=== PATIENT | female | born 1945 | race Caucasian/White ===

== ENCOUNTER → 2016-10-14 | Outpatient (REF) | payer MEDICARE, BC | LOC: M LAB REF 16:44 | PROVIDERS: ATTEND Internal Medicine | DX: I48.91 Unspecified atrial fibrillation (principal) ==

== ENCOUNTER → 2016-10-28 | Outpatient (REF) | payer MEDICARE, BC | LOC: M LAB REF 16:21 | PROVIDERS: ATTEND Internal Medicine | DX: I50.9 Heart failure, unspecified (principal); I48.91 Unspecified atrial fibrillation ==

== ENCOUNTER → 2016-11-19 | Outpatient (REF) | payer MEDICARE, BC | LOC: M LAB REF 16:28 | PROVIDERS: ATTEND Internal Medicine | DX: I48.91 Unspecified atrial fibrillation (principal) ==

== ENCOUNTER → 2016-12-25 | Outpatient (REF) | payer MEDICARE, BC ==
[~2016-12-25] MED LIST: CALCTAB44 PO; FURO40TA2 PO; LANO0.1211 PO; METO1TAB33 PO; SIMV20TA2 PO; SYNT137T7 PO; XARE20TA PO
== END ==
LOC: M LAB REF 16:47
PROVIDERS: ATTEND Internal Medicine
DX: I48.91 Unspecified atrial fibrillation (principal)

== ENCOUNTER 2017-03-10 06:51 | Outpatient (CLI) | payer MEDICARE, BC ==
[2017-03-10] MEDS ORDERED: XARE20TA PO (07:17)
[2017-03-10] MEDS ORDERED: METO1TAB33 PO (07:17)
[2017-03-10] MEDS ORDERED: CALCTAB44 PO (07:17)
[2017-03-10] MEDS ORDERED: LANO0.1211 PO (07:17)
[2017-03-10] MEDS ORDERED: SYNT137T7 PO (07:17)
[2017-03-10] MEDS ORDERED: SIMV20TA2 PO (07:17)
[2017-03-10] MEDS ORDERED: FURO40TA2 PO (07:17)
[2017-03-10] MEDS ORDERED: fentaNYL 100 MCG/2 ML INJECTION (J3010) As Ordered ONE (07:30)
[2017-03-10] MEDS ORDERED: MIDAZOLAM INJ 2 MG/2 ML VIAL (J2250) As Ordered ONE ×2 (07:30→07:44)
[2017-03-10] MEDS ORDERED: LIDOCAINE VISCOUS 2% SOLN 15ML UDC As Ordered ONE (07:31)
[2017-03-10 09:02] VITALS: BP 141/71
--- NOTE | 2017-03-10 22:16 | T-ECHO ---
DATE OF PROCEDURE: 03/10/2017 PRINCIPAL DIAGNOSIS: Mitral stenosis. BRIEF HISTORY: Mrs. Corbin is a rather delightful 71-year-old female who has chronic atrial fibrillation and known mitral stenosis that was felt to be at least moderately severe by transthoracic echocardiogram. Because she is increasingly symptomatic, she was brought for a transesophageal echocardiogram to assess the structure of mitral valve to see whether she could be a candidate for balloon valvuloplasty. The nature of the procedure, its potential risks and complications were discussed with the patient on an outpatient basis. She signed appropriate consent. She was brought to the hospital in fasting condition. PROCEDURE NOTE: Procedure was performed in endoscopy suite. The patient's posterior pharynx was anesthetized using viscous lidocaine and Cetacaine [place]. Appropriate time-out was obtained. The patient was sedated using a total of 4 mg of IV Versed and 50 mcg of IV fentanyl. She was positioned on the left side for the procedure. Probe was introduced into esophagus and later stomach with minor difficulty. After appropriate images were obtained, it was withdrawn. There were no immediate complications, and the patient tolerated the procedure well. Of note, during the procedure, she was intermittently bradycardic with typical heart rate around 50 beats per minute and occasionally dropping into high 30s. This has improved after she recovered from sedation. There were no episodes of hypotension during the study, and there was no significant hypoxemia. FINDINGS: Both atria are severely enlarged. Left atrium appendage is large as well. There is no apparent thrombus seen. There is apparent "smoke" in left atrium indicative of low flow state. Flow in left-sided pulmonary veins is normal. Right atrium is also markedly increased in size. Atrial septum is intact based on two-dimensional imaging, color Doppler imaging. After injection of agitated saline, there was no evidence for [id number] or ejlf-lq-brcln shunt. Left ventricle is of normal size and overall normal systolic function. I estimate left ventricular ejection fraction (LVEF) around 60%. No segmental wall motion abnormalities are appreciated. Right ventricle also appears normal and has normal systolic function. Aortic valve is tricuspid. It is mildly sclerotic but has preserved mobility. Based on color Doppler imaging, there is no aortic stenosis and trace aortic insufficiency. Tricuspid valve appears normal. There is approximately moderate tricuspid insufficiency. Tricuspid regurgitation peak gradient was measured a 31 mmHg. That would translate into mild pulmonary hypertension. Pulmonic valve is functionally competent. Mitral valve in is indeed stenotic. There is some thickening of mitral leaflet and restriction of leaflet mobility. Minimal calcifications are seen. The peak gradient across the mitral valve was 16 mmHg and mean gradient 6 mmHg, that would correspond to approximately moderate mitral stenosis. There was only mild mitral insufficiency. Only minimal atherosclerosis was seen in thoracic aorta. CONCLUSIONS: 1. Normal left ventricular (LV) systolic function. 2. Approximately moderate mitral stenosis, mild mitral insufficiency, no significant calcifications in the mitral valve apparatus. 3. No significant aortic valve disease. 4. Moderate tricuspid insufficiency. 5. At least mild pulmonary hypertension. 6. Intact atrial septum. 7. Low flow state seen in left atrium based on presence of "smoke." COMMENTS: Subacute bacterial endocarditis (SBE) prophylaxis is not recommended. The severity of mitral stenosis does not appear sufficient to be fully explaining the patient's symptoms. Probably in part due to significant bradycardia during the study. I will see the patient in followup within 1 or 2 weeks and will likely set up cardiac catheterization for further evaluation of her symptoms. LANE
== END 2017-03-10 09:02 | disposition home or self-care (01) ==
LOC: M OPP 06:51
PROVIDERS: ATTEND Internal Medicine Cardiovascular Disease
DX: I34.2 Nonrheumatic mitral (valve) stenosis (principal); I48.2 Chronic atrial fibrillation; I27.0 Primary pulmonary hypertension; I36.1 Nonrheumatic tricuspid (valve) insufficiency; I10 Essential (primary) hypertension; R06.09 Other forms of dyspnea; Z88.2 Allergy status to sulfonamides; Z88.5 Allergy status to narcotic agent; Z88.8 Allergy status to other drugs, medicaments and biological substances; Z80.9 Family history of malignant neoplasm, unspecified; Z79.899 Other long term (current) drug therapy
CPT/HCPCS: 93312; 93320; 93325; J2250; J3010

== ENCOUNTER → 2017-03-21 | Outpatient (CLI) | payer MEDICARE, BC ==
[2017-03-21 17:02] LABS: ANION GAP 8 MEQ/L (8-16); BLOOD UREA NITROGEN 11 MG/DL (7-18); CALCIUM LEVEL 8.9 MG/DL (8.8-10.2); CARBON DIOXIDE LEVEL 27 MEQ/L (21-32); CHLORIDE LEVEL 102 MEQ/L (98-107); CREATININE FOR GFR 0.72 MG/DL (0.55-1.02); GLOMERULAR FILTRATION RATE > 60.0 (>45); GLUCOSE, FASTING 95 MG/DL (80-110); POTASSIUM SERUM 3.9 MEQ/L (3.5-5.1); SODIUM LEVEL 137 MEQ/L (136-145)
[2017-03-21 17:13] LABS: BASO # 0.1 10^3/uL (0.0-0.2); EOS # 0.1 10^3/uL (0.0-0.50); EOS % 1.8 % (0.0-3.0); IMMATURE GRANULOCYTE % 0.3 % (0-0); LYMPH # 1.7 10^3/uL (1.5-4.5); LYMPH % 23.6 % (24.0-44.0); MEAN CORPUSCULAR HEMOGLOBIN 28.4 pg (27.0-33.0); MEAN CORPUSCULAR HGB CONC 33.1 g/dl (32.0-36.5); MEAN CORPUSCULAR VOLUME 85.7 fl (80.0-96.0); MONO # 0.5 10^3/uL (0.0-0.8); NEUTROPHILS # 4.8 10^3/uL (1.8-7.7); NEUTROPHILS % 66.3 % (36.0-66.0); PLATELET COUNT, AUTOMATED 406 10^3/uL (150-450); RED CELL DISTRIBUTION WIDTH 13.7 % (11.5-14.5); WHITE BLOOD COUNT 7.3 10^3/uL (4.0-10.0)
[2017-03-21 17:18] LABS: ADD MORPHOLOGY? NO
== END ==
LOC: M WUC 14:21
PROVIDERS: ATTEND Internal Medicine Cardiovascular Disease
DX: I05.0 Rheumatic mitral stenosis (principal); I10 Essential (primary) hypertension

== ENCOUNTER → 2017-07-08 | Outpatient (REF) | payer MEDICARE, BC ==
[2017-07-08 17:58] LABS: DIGOXIN LEVEL 0.3 NG/ML (0.5-2.0)
== END ==
LOC: M LAB REF 16:41
DX: I48.91 Unspecified atrial fibrillation (principal)
CPT/HCPCS: 80162

== ENCOUNTER → 2018-11-10 | Outpatient (CLI) | payer MEDICARE, BC ==
[~2018-11-10] MED LIST changes: +CALC1TAB82 PO; -CALCTAB44 PO; +LANO0.12 PO; -LANO0.1211 PO
--- NOTE | 2018-11-10 15:08 | REP ---
REASON: Foot bone pain. No trauma. No priors. Degenerative change is seen throughout the foot. The bones are somewhat demineralized. Plantar and a large retrocalcaneal heel spur. No evidence of an acute fracture. IMPRESSION: Chronic changes as described above. Electronically Signed by Jerson Wood DO 11/10/2018 03:16 P
== END ==
LOC: M WUC 14:45
PROVIDERS: ATTEND Physician Assistant
DX: M77.32 Calcaneal spur, left foot (principal)

== ENCOUNTER → 2018-11-23 | Outpatient (CLI) | payer MEDICARE, BC ==
--- NOTE | 2018-11-23 15:18 | REPMRS ---
Patient History The patient states she has not had a clinical breast exam in over a year. Patient is postmenopausal. No known family history of cancer. No Hormone Replacement Therapy 3D TOMOSYNTHESIS WAS PERFORMED. Digital Woman Screen Mammo: November 23, 2018 - Exam #: [id number] Bilateral CC and MLO view(s) were taken. Technologist: Hortencia Arguello, Technologist Prior study comparison: May 20, 2016, digital woman screen mammo performed at [facility] [place] [facility]. November 11, 2012, digital woman screen mammo performed at [facility] [place] [facility]. FINDINGS: There are scattered fibroglandular densities. There has been no change in the appearance of the mammogram from the prior studies. There is a mild amount of residual fibroglandular tissue which is fairly symmetric. There is no interval development of dominant mass, architectural distortion, or clustered microcalcification suggestive of malignancy. Assessment: BI-RADS/ACR category 1 mammogram. Negative Mammogram. Recommendation Routine screening mammogram in 1 year (for women over age 40). This mammogram was interpreted with the aid of an FDA-approved computer-aided dectection system. Electronically Signed By: Adria Clarke MD 11/23/18 0601
--- NOTE | 2018-11-27 11:07 | DEXA ---
AP SPINE L1 - L4 0.902 -2.4 -0.7 LT FEMUR TOTAL 0.787 -1.8 -0.2 LT NECK 0.699 -2.4 -0.7 RT FEMUR TOTAL 0.817 -1.5 0.0 RT NECK 0.745 -2.1 -0.4 TOTAL BODY TOTAL OTHER COMMENTS: There is low bone density of the spine and hips. The decreased density of the spine does represent a significant change. The decreased density of the left hip does represent a significant change. The decreased density of the right hip does represent a significant change. The density of the spine has increased 2.7% since the initial exam on 03/17/2008. The spine density has decreased 2.9% since the most recent exam on 05/20/2016. The density of the left hip has increased 1.9% since the initial exam on 03/17/2008. The density of the left hip has decreased 4.4% since the most recent exam on 05/20/2016. The density of the right hip has increased 6.7% since the initial exam on 03/17/2008. The density of the right hip has decreased 5.9% since most recent exam on 05/12/2016. FOLLOW-UP: Recommendation for the next bone density exam: [address]
== END ==
LOC: M WHC 13:00
PROVIDERS: ATTEND Internal Medicine
DX: Z12.31 Encounter for screening mammogram for malignant neoplasm of breast (principal); M85.88 Other specified disorders of bone density and structure, other site; M81.0 Age-related osteoporosis without current pathological fracture

== ENCOUNTER → 2019-05-19 | Outpatient (REF) | payer MEDICARE, BC ==
[2019-05-19 17:46] LABS: INR 4.18; PROTHROMBIN TIME 40.5 SECONDS (11.8-14.0)
== END ==
LOC: M LAB REF 16:46
PROVIDERS: ATTEND Internal Medicine Cardiovascular Disease
DX: E78.5 Hyperlipidemia, unspecified (principal); I07.1 Rheumatic tricuspid insufficiency; Z79.01 Long term (current) use of anticoagulants

== ENCOUNTER → 2021-04-09 | Outpatient (CLI) | payer MEDICARE, BC ==
[~2021-04-09] MED LIST changes: +CALC-234 PO; -CALC1TAB82 PO; -SIMV20TA2 PO; +SIMV20TA22 PO
--- NOTE | 2021-04-09 11:12 | DEXAMM ---
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 COMPARISON: 11/23/2018 as well as other prior exams. TECHNIQUE: Bone density was measured using dual-energy x-ray absorptiometry (DEXA). FINDINGS: AP SPINE L1-L4 BMD 0.938 g/cm2 Young Adult T-Score -2.1 Age Matched Z-Score -0.3. LT FEMUR, TOTAL BMD 0.775 g/cm2 Young Adult T-Score -1.8 Age Matched Z-Score -0.2. LT NECK BMD 0.773 g/cm2 Young Adult T-Score -1.9 Age Matched Z-Score 0.0. RT FEMUR, TOTAL BMD 0.848 g/cm2 Young Adult T-Score -1.3 Age Matched Z-Score 0.4. RT NECK BMD 0.731 g/cm2 Young Adult T-Score -2.2 Age Matched Z-Score -0.3. IMPRESSION: There is low bone density of the spine. There is low bone density of the left hip. There is low bone density of the right hip. The density of the spine has increased 6.8% since the initial exam on 03/17/2008. The density of the spine increased 4.0% since most recent exam on 11/23/2018. The density of the left hip has increased 0.4% since initial exam on 03/17/2008. The density of the left hip has decreased 1.5% since most recent exam on 11/23/2018. The density of the right hip has increased 10.7% since the initial exam on 03/17/2008. The density of the right hip has increased 3.8% since the most recent exam on 11/23/2018. FOLLOW-UP: Recommendation for the next bone density exam: 2 years. <Electronically signed by Adria Clarke > 04/09/21 [id number]
--- NOTE | 2021-04-09 11:42 | REPMRS ---
Patient History The patient states she had a clinical breast exam in November 2020. Patient is postmenopausal. Family history of unknown cancer in sister. No Hormone Replacement Therapy Patient states no breast complaints today. Patient has signed MRS History Sheet. Digital Woman Screen Mammo: April 09, 2021 - Exam #: [id number] Bilateral CC and MLO view(s) were taken. Technologist: Mercy Thomas, Technologist Prior study comparison: November 23, 2018, bilateral digital woman screen mammo performed at [facility]. May 20, 2016, digital woman screen mammo performed at [facility]. FINDINGS: There are scattered fibroglandular densities. Screening. Digital screening (2D) mammography was performed bilaterally in the CC and MLO projections. Additionally, breast tomosynthesis (3D mammography) was performed bilaterally in the CC and MLO projections. Todays exam was compared to the prior exam/exams. By history, the patient has no complaints of a palpable breast abnormality or other significant breast complaints. The breasts are unchanged in size and shape. There are no lorna-soft tissue densities or spiculated masses. There is no internal architectural distortion. Once again, stable benign appearing calcifications are seen.There are no suspicious lorna-calcific clusters. Skin thickening or nipple retraction is not present. IMPRESSION: BI-RADS Category 2- Benign Findings. There is no evidence of malignant alteration of the breasts. Followup examination recommended in one year. The [place] volumetric breast density category is B, there are scattered areas of fibroglandular densities. This mammogram was read with the assistance of [employer],an FDA approved computer aided detection system for mammography. The lifetime Tyrer-Cuzick score is 4.3 % Negative x-ray reports should not delay surgical consultation if a dominant or clinically suspicious mass is present. Not all breast cancers can be identified by mammography. Therefore, we recommend that you continue to perform regular breast self-examination and physical examination and then promptly contact your physician of any concerns or changes. Adenosis and dense breasts may obscure an underlying neoplasm. Assessment: BI-RADS/ACR category 2 mammogram. Benign Findings. Recommendation Routine screening mammogram of both breasts in 1 year. Electronically Signed By: Jerson Wood DO 04/09/21 114
== END ==
LOC: M WHC 09:51
PROVIDERS: ATTEND Internal Medicine
DX: Z12.31 Encounter for screening mammogram for malignant neoplasm of breast (principal); M81.0 Age-related osteoporosis without current pathological fracture; Z78.0 Asymptomatic menopausal state; Z80.8 Family history of malignant neoplasm of other organs or systems; R92.1 Mammographic calcification found on diagnostic imaging of breast

== ENCOUNTER → 2023-12-10 | Outpatient (REF) | payer MEDICARE, BC ==
[2023-12-10 13:22] LABS: URIC ACID 9.6 MG/DL (3.1-7.8)
[2023-12-10 13:23] LABS: C REACTIVE PROTEIN QUANTITATIV 0.6 MG/DL (<1.0)
[2023-12-10 13:25] LABS: RHEUMATOID FACTOR QUANT 3.6 IU/ML (<14)
[2023-12-11 15:08] LABS: ANA SCREEN, IFA NEGATIVE (NEGATIVE)
[2023-12-11 15:13] LABS: CYCLIC CITRULLINATED PEPTIDE < 16 UNITS (<20)
[2023-12-12 18:27] LABS: LYME TOTAL ANTIBODY CIA <= 0.90 Index (<=0.90)
== END ==
LOC: M LAB REF 12:11
PROVIDERS: ATTEND Internal Medicine
DX: M25.531 Pain in right wrist (principal); N18.31 Chronic kidney disease, stage 3a; I05.9 Rheumatic mitral valve disease, unspecified

== ENCOUNTER → 2023-12-31 | Outpatient (CLI) | payer MEDICARE, BC | LOC: M WHC 09:44 | PROVIDERS: ATTEND Internal Medicine | DX: Z12.31 Encounter for screening mammogram for malignant neoplasm of breast (principal); Z13.820 Encounter for screening for osteoporosis ==

== ENCOUNTER → 2024-01-14 | Outpatient (REF) | payer MEDICARE, BC | LOC: M LAB REF 13:19 | PROVIDERS: ATTEND Internal Medicine | DX: M25.531 Pain in right wrist (principal) ==

== ENCOUNTER → 2024-06-09 | Outpatient (REF) | payer MEDICARE, BC ==
[2024-06-09 14:28] LABS: C REACTIVE PROTEIN QUANTITATIV 0.61 MG/DL (<1.0)
[2024-06-10 09:25] LABS: PERCENT SATURATION 17.5 % (13.2-45.0)
[2024-06-10 09:28] LABS: FERRITIN 43.6 NG/ML (7.3-270.7)
== END ==
LOC: M LAB REF 13:26
PROVIDERS: ATTEND Internal Medicine
DX: M25.531 Pain in right wrist (principal)